=== PATIENT | female | born 1955 | race Caucasian/White ===

== ENCOUNTER → 2023-12-06 11:05 | Outpatient (REF) | payer MEDICARE, SELFPAY ==
--- NOTE | 2023-12-06 15:24 | EEG.RPT ---
Electroencephalogram Report
Recording
Date of EE12/06/23
Length of EEG recordin hour 1 minute
Done with Video Recording: Yes
Patient Status: Outpatient
Recording Conditions: Awake and Drowsy
Hyperventilation Performed: No
Photic Stimulation Performed: Yes
Report
GREATER THAN 1 HOUR EEG INTERPRETATION:
Unremarkable EEG for age
CLINICAL CORRELATION:
A normal EEG does not rule out a diagnosis of epilepsy.� If clinical suspicion for seizure persists, a prolonged recording may be warranted.
Clinical correlation is advised.
METHODS:
A 21 channel digitized electroencephalogram (EEG) was performed using the 10/20 international system of electrode placement and one-lead of ECG recorded. Study lasted 1 hour 1 minute.
ELECTROENCEPHALOGRAPHER IMPRESSION(S):
Quality of study
Good
Background
There was an unremarkable anterior-posterior voltage gradient of alpha frequency.
With eye opening the background activity changed to a low voltage mixture of frequencies.
There were no significant asymmetries of background activity noted.
Sleep
Drowsiness present
Stage 1 present
Photic Stimulation
No activation
ECG
Normal sinus rhythm
== END ==
LOC: RCS 11:05
PROVIDERS: ATTENDING PHYSICIAN Psychiatry & Neurology Neurology; FAMILY PHYSICIAN Nurse Practitioner Adult Health
DX: R46.89 Other symptoms and signs involving appearance and behavior (principal)
CPT/HCPCS: 95813

== ENCOUNTER → 2024-02-24 09:46 | Outpatient (REF) | payer MEDICARE, SELFPAY | LOC: RCS 09:46 | PROVIDERS: ATTENDING PHYSICIAN Psychiatry & Neurology Neurology; FAMILY PHYSICIAN Nurse Practitioner Adult Health | DX: R46.89 Other symptoms and signs involving appearance and behavior (principal) | CPT/HCPCS: 93225; 93226 ==

== ENCOUNTER → 2024-03-05 09:28 | Outpatient (REF) | payer MEDICARE, SELFPAY ==
--- NOTE | 2024-03-06 15:58 | EEG.RPT ---
Electroencephalogram Report
Recording
Date of EE03/05/24
Type of EEG: Ambulatory
Length of EEG recordin day 15 minutes
Done with Video Recording: No
Patient Status: Outpatient
Recording Conditions: Awake, Drowsy and Asleep
Hyperventilation Performed: Yes
Photic Stimulation Performed: Yes
Report
24 HOUR EEG REPORT
24 HOUR EEG INTERPRETATION:
Minimally abnormal EEG for age in wakefulness through sleep due to 3 left occipital sharp waves.
CLINICAL CORRELATION:
This study was suggestive of a minimal abnormality not clearly associated with a seizure disorder. The patient�s logs did not indicate clinical symptoms. Prolonged EEG recording for greater than 24 hours may be warranted.
Clinical correlation is advised.
METHODS:
A 21 channel digitized electroencephalogram (EEG) was initiated in the [facility]. The patient then wore the device outside of the lab and returned after 24 hours for EEG lead and recorder removal. The 10/20 international
system of electrode placement was used. ECG was monitored.
ELECTROENCEPHALOGRAPHER IMPRESSION(S):
Quality
Good
Background
In maximal wakefulness there was an alpha background.
There was a normal anterior-posterior voltage gradient.
There were no significant asymmetries of background activity noted.
Photic stimulation
Failed to produce activation the record
Hyperventilation
Failed to produce activation of the record
Sleep
Drowsiness was suggested by slowing of the background rhythms
Abnormal findings:
Three O1-P3 maximal medium amplitude sharp waves noted.
ECG:
Normal sinus rhythm
== END ==
LOC: EEG 09:28
PROVIDERS: ATTENDING PHYSICIAN Psychiatry & Neurology Neurology; FAMILY PHYSICIAN Nurse Practitioner Adult Health
DX: R46.89 Other symptoms and signs involving appearance and behavior (principal)
CPT/HCPCS: 95708

== ENCOUNTER → 2024-06-04 09:16 | Outpatient (REF) | payer MEDICARE, SELFPAY | LOC: HWRAD 09:16 | PROVIDERS: ATTENDING PHYSICIAN Nurse Practitioner Family | DX: M25.511 Pain in right shoulder (principal) | CPT/HCPCS: 73030 ==